=== PATIENT | female | born 1995 | race Caucasian/White ===

== ENCOUNTER 2021-12-03 11:56 | Emergency (ER) | payer OTHER, SELFPAY ==
--- NOTE | 2021-12-03 12:03 | DI.CT.S_ITS ---
PROCEDURE: CT HEAD/BRAIN WO CON INDICATIONS: new onset seizure TECHNIQUE: Noncontrast 4.5 mm thick angled axial sections acquired from the foramen magnum to the vertex, with coronal and sagittal reformats. For radiation dose reduction, the following was used: automated exposure control, adjustment of mA and/or kV according to patient size. COMPARISON: None. FINDINGS: Image quality: Excellent. CSF spaces: Basal cisterns are patent. No extra-axial fluid collections. Ventricles are normal in size and shape. Brain: No midline shift. No intracranial masses or hemorrhage. Rivera-white matter interface is normal. Skull and face: Calvarium and visualized facial bones are intact, without suspicious lesions. Sinuses: Left maxillary sinus mucosal thickening. Mastoid are clear. IMPRESSION: 1. No acute intracranial abnormalities. Nonurgent MRI is suggested for further workup 2. Left maxillary sinus disease. Dictated by: Noé Andrade M.D. on 12/03/2021 at 12:21 Approved by: Noé Andrade M.D. on 12/03/2021 at 12:22
[2021-12-03 12:10] VITALS: BP 143/96; PULSE 91; RESP 18; TEMP 36.9; O2SAT 100; BMI 43.9
[2021-12-03 12:14] LABS: Add Manual Diff / Slide Review NO; Basophils Absolute Auto 100 /uL (0-100); Basophils Percent Auto 0.7 % (0-2); Eosinophils Absolute Auto 300 /uL (0-450); Eosinophils Percent Auto 3.1 % (2-4); Hematocrit 38.6 % (36-46); Lymphocytes Absolute Auto 2700 /uL (1100-4500); Lymphocytes Percent Auto 31.7 % (25-40); Mean Corpuscular HGB Conc 33.8 % (30-36); Mean Corpuscular Hemoglobin 29.3 PG (26-34); Mean Corpuscular Volume 86.8 fL (80-100); Monocytes Absolute Auto 400 /uL (0-900); Neutrophils Absolute Auto 5100 /uL (1500-7000); Neutrophils Percent Auto 59.5 % (50-75); Platelet Count 284 X10^3/uL (150-400); Red Blood Cell Count 4.45 X10^6/uL (4.0-5.2); Red Cell Distribution Width 13.2 % (11.6-14.8); White Blood Cell Count 8.5 X10^3/uL (4.5-11.0)
--- NOTE | 2021-12-03 12:18 | PC.NURSE ---
pt able to answer questions and make needs known, although she is slow to respond at times and has some stuttering.
[2021-12-03 12:30] VITALS: BP 135/84; PULSE 79; RESP 16; O2SAT 99
[2021-12-03 12:35] LABS: Alanine Aminotransferase 22 IU/L (<35); Albumin 4.2 g/dL (3.5-5.0); Albumin Globulin Ratio 1.4 (1.0-2.8); Alkaline Phosphatase 62 U/L (38-126); Aspartate Aminotransferase 25 IU/L (14-36); Bilirubin Total 0.5 mg/dL (0.2-1.3); Blood Urea Nitrogen 7 mg/dL (7-17); Calcium 8.5 mg/dL (8.4-10.2); Carbon Dioxide 24 mmol/L (22-32); Chloride 108 mmol/L (98-107); Creatine Kinase 73 U/L (30-135); Estimated Glomerular Filt Rate > 60 mL/min (>60); Ethanol (ETOH) < 10 mg/dL; Globulin 2.9 g/dL (1.7-4.1); Glucose 93 mg/dL (70-100); HEMOLYSIS < 15 (0-50); Potassium 3.9 mmol/L (3.4-5.1); Sodium 139 mmol/L (137-145); Total Protein 7.1 g/dL (6.3-8.2)
[2021-12-03 12:46] LABS: Troponin I < 0.012 ng/mL (0.01-0.034)
--- NOTE | 2021-12-03 12:46 | ED.SEIZURE ---
HPI - Seizure General Chief Complaint: Altered Mental Status Stated Complaint: Seizure like activity 3 days Time Seen by Provider: 12/03/21 11:57 Source: EMS Mode of arrival: EMS Limitations: altered mental status History of Present Illness HPI Narrative: Patient is a 26-year-old female has a history of migraines presents today with possible ongoing seizure-like activity. EMS reports that while in route she has had ups on like seizures. She is currently mute but able to write things down and follow commands. She apparently stares off into space she has a mild tremor in her right hand. She then quickly becomes awake. Apparently this has been going on for the last 3 days. She passed out and a car. states that she becomes nonresponsive for 20 minutes to an hour at a time. He says her eyes are open but she really is not responding. She is not talking. Following commands. He tried shaking her very violently and shining a light in her eyes. Eventually she comes around she does not remember much and she is extremely tired the rest of the day. Review of Systems Review of Systems Narrative: GENERAL: Denies chills, fatigue, malaise, fever, sweats, travel HEENT: Denies sinus pain, ear pain, sore throat, difficulty swallowing, neck pain RESPIRATORY: Denies dyspnea, cough, wheezing, hemoptysis, sputum. CARDIOVASCULAR: Denies chest pain, palpitations, orthopnea, edema GASTROINTESTINAL: Denies nausea, vomiting, abdominal pain, diarrhea, constipation, melena. : Denies dysuria, frequency, incontinence, hematuria, urinary retention, flank pain. MUSCULOSKELETAL: Denies weakness, joint pain, or bony pain SKIN: No rash, no erythema, no pruritus NEUROLOGIC: See HPI PSYCHIATRIC: No concerning psychosocial issues. 12 point review of systems is negative except for those stated above and HPI Patient History Social History Smoking Status: Never smoker Smoking Status: Never smoker Substance Use Type: does not use Exam Initial Vital Signs Initial Vital Signs: Vital Signs Temperature 98.4 F 12/03/21 12:10 Pulse Rate 91 H 12/03/21 12:10 Respiratory Rate 18 12/03/21 12:10 Blood Pressure 143/96 H 12/03/21 12:10 Pulse Oximetry 100 12/03/21 12:10 Oxygen Delivery Method 12/03/21 12:10 GENERAL: Well-appearing, well-nourished and in no acute distress. Patient is able to talk she has some slight stutter HEENT: Head atraumatic,EOMI, pupils reactive, face symmetric, moist mucous membranes CARDIOVASCULAR: Regular rate and rhythm without murmurs, rubs or gallops. RESPIRATORY: Breath sounds equal bilaterally, no wheezes rales or rhonchi. ABDOMEN: Soft, nontender. Normoactive bowel sounds all 4 quadrants. No guarding or rebound. EXTREMITIES: Normal range of motion, no clubbing or edema. Neurovascularly intact NEUROLOGICAL: Alert and oriented x4.Normal gait and speech. Cranial nerves II through XII grossly intact. Good [id number], good [id number], strength equal bilaterally, no dysarthria or aphasia, sensation in tact to soft touch bilaterally, no visual changes, no facial droop SKIN: Warm, dry, no laceration, no petechiae, no rashes or lesions. Course Orders Ordered: ED Orders 12/03/21 12:00 CBC Auto Diff [Complete Blood Count AUTO DIFF] Stat CMP [Comprehensive Metabolic Panel] Stat ETOH [Ethanol (ETOH)] Stat Prolactin Stat Troponin & CK Cardiac Panel Stat 12/03/21 12:03 CT head/brain wo con Stat 12/03/21 13:00 Urine Drug Screen, Rapid Stat Vital Signs Vital signs: Vital Signs - 8 hr 12/03/21 12:10 12/03/21 13:39 12/03/21 12:30 Temperature 98.4 F Pulse Rate 91 H 80 79 Respiratory Rate 18 16 16 Blood Pressure 143/96 H 124/68 135/84 Pulse Oximetry 100 99 99 Oxygen Delivery Method Room Air Room Air Room Air MDM - Seizure Lab Data Result diagrams: 12/03/21 12:00 12/03/21 12:00 Labs: Lab Results 12/03/21 12/03/21 12/03/21 Range/Units 12:00 12:00 13:00 WBC 8.5 (4.5-11.0) X10^3/uL RBC 4.45 (4.0-5.2) X10^6/uL Hgb 13.0 (12.0-16.0) g/dL Hct 38.6 (36-46) % MCV 86.8 (80-100) fL MCH 29.3 (26-34) PG MCHC 33.8 (30-36) % RDW 13.2 (11.6-14.8) % Plt Count 284 (150-400) X10^3/uL Neut % (Auto) 59.5 (50-75) % Lymph % (Auto) 31.7 (25-40) % Hardin % (Auto) 5.0 (3-14) % Eos % (Auto) 3.1 (2-4) % Baso % (Auto) 0.7 (0-2) % Neut # (Auto) 5100 (7021-6714) /uL Lymph # (Auto) 2700 (6737-8516) /uL Hardin # (Auto) 400 (0-900) /uL Eos # (Auto) 300 (0-450) /uL Baso # (Auto) 100 (0-100) /uL Sodium 139 (137-145) mmol/L Potassium 3.9 (3.4-5.1) mmol/L Chloride 108 H (98-107) mmol/L Carbon Dioxide 24 (22-32) mmol/L BUN 7 (7-17) mg/dL Creatinine 0.70 (0.52-1.04) mg/dL Estimated GFR > 60 (>60) mL/min BUN/Creatinine Ratio 10.0 (6-22) Glucose 93 (70-100) mg/dL Calcium 8.5 (8.4-10.2) mg/dL Total Bilirubin 0.5 (0.2-1.3) mg/dL AST 25 (14-36) IU/L ALT 22 (<35) IU/L Alkaline Phosphatase 62 (38-126) U/L Total Creatine Kinase 73 (30-135) U/L CK-MB (CK-2) TNP CK-MB (CK-2) Rel Index TNP Troponin I < 0.012 (0.01-0.034) ng/mL Total Protein 7.1 (6.3-8.2) g/dL Albumin 4.2 (3.5-5.0) g/dL Globulin 2.9 (1.7-4.1) g/dL Albumin/Globulin Ratio 1.4 (1.0-2.8) Prolactin 22.3 H (3.0-18.6) ng/mL U Opiates 300ng/mL cut Negative (Negative) Ur Oxycodone Screen Negative (Negative) Urine Methadone Screen Negative (Negative) Ur Barbiturates Screen Negative (Negative) U Tricyclic Antidepress Negative (Negative) Ur Phencyclidine Scrn Negative (Negative) Ur Amphetamines Screen Negative (Negative) U Methamphetamines Scrn Negative (Negative) Ur MDMA Scrn (Ecstasy) Negative (Negative) U Benzodiazepines Scrn Negative (Negative) Urine Cocaine Screen Negative (Negative) U Marijuana (THC) Screen Negative (Negative) Ethyl Alcohol < 10 ( - 10) mg/dL Point of Care Testing Test Results Negative Imaging Data CT scan - head: Radiologist's Impression: [facility] [place] [id number] CT Scan Report Signed Patient: Ángela Terrazas MR#: [id number] : 1995 Acct:[id number] Age/Sex: 26 / F Date of Service: 12/03/21 Loc: ED Accession Number: [id number] ?? Procedure: CT head/brain wo con Ordering Provider: Yasmine Briones D.O. PROCEDURE:? CT HEAD/BRAIN WO CON ? INDICATIONS:? new onset seizure ? TECHNIQUE:? Noncontrast 4.5 mm thick angled axial sections acquired from the foramen magnum to the vertex, with coronal and sagittal reformats.? For radiation dose reduction, the following was used:? automated exposure control, adjustment of mA and/or kV according to patient size.? ? COMPARISON:? None. ? FINDINGS:? Image quality:? Excellent.? ? CSF spaces:? Basal cisterns are patent.? No extra-axial fluid collections.? Ventricles are normal in size and shape.? ? Brain:? No midline shift.? No intracranial masses or hemorrhage.? Rivera-white matter interface is normal.? ? Skull and face:? Calvarium and visualized facial bones are intact, without suspicious lesions.? ? Sinuses:? Left maxillary sinus mucosal thickening.? Mastoid are clear.? ? IMPRESSION:? ? 1. No acute intracranial abnormalities.? Nonurgent MRI is suggested for further workup ? 2. Left maxillary sinus disease. ? ? ? Dictated by: Noé Andrade M.D. on 12/03/2021 at 12:21 ? ? MDM Narrative Medical decision making narrative: Patient symptoms really do not sound or look like seizures. Able to write things down but not able to talk. Unresponsive for 20-60 minutes eyes open but not following commands certainly not enough sounds like seizure. Possible psychogenic. Patient apparently does see psychiatrist this has been going on for few days the psychiatrist said that it was not her medications sertraline. She states sometimes it happens when she feels like the headache coming on. She and when she just got here initially complaining and pointing to her neck Upon re-evaluation patient is awake alert oriented able to answer questions. Talking appropriately. now in room. Workup in the emergency department is negative. No sign of infection. Head CT is negative. Discharge Plan Departure Patient Disposition: Home Clinical Impression: Atypical migraine Instructions: DI for Migraine Activity Restrictions/Additional Instructions: *You have been diagnosed with atypical migraine *What to do: At this time I am not convinced you are having seizures however I do still strongly recommend that you see a neurologist. *Continue to take medications as directed *Follow up with your primary care provider in 2-3 days or call [phone] *Return to ER if you should have unresponsiveness, shaking all over body worsening confusion or any new, worsening or concerning symptoms Referrals: Karissa Araujo PA-C [Primary Care Provider] - Visit Report Forms: Patient Portal/API
[2021-12-03 12:50] LABS: Prolactin 22.3 ng/mL (3.0-18.6)
[2021-12-03 13:11] LABS: UR Morphine/Opiate cutoff 300 Negative (Negative); Ur Creatinine Normal (Normal); Ur Specific Gravity Normal (Normal); Urine Amphetamines Negative (Negative); Urine Barbiturates Negative (Negative); Urine Benzodiazepines Negative (Negative); Urine Cocaine Negative (Negative); Urine MDMA Negative (Negative); Urine Methadone Negative (Negative); Urine Methamphetamines Negative (Negative); Urine Oxycodone Negative (Negative); Urine Phencyclidine Negative (Negative); Urine Tetrahydrocannabinol Negative (Negative); Urine Tricyclic Antidepressant Negative (Negative); Urine pH Normal (Normal)
[2021-12-03 13:39] VITALS: BP 124/68; PULSE 80; RESP 16; O2SAT 99
== END 2021-12-03 13:40 | disposition home or self-care (01) ==
PROVIDERS: Emergency Provider Emergency Medicine; PCP Physician Assistant
DX: G43.909 Migraine, unspecified, not intractable, without status migrainosus (principal)
CPT/HCPCS: 70450; 80053; 80305; 80320; 81025; 82550; 84146; 84484; 85025; 99283; 99284